=== PATIENT | female | born 1990 | race Caucasian/White ===

== ENCOUNTER 2017-02-03 03:39 | Emergency (ER) | payer MEDICAID ==
[2017-02-03] MEDS ORDERED: oxyCODONE 5 MG Tab PO ONE (04:27)
--- NOTE | 2017-02-03 04:36 | EDM.PDOC ---
ED HPI GI/ABDOMINAL - General Chief Complaint: Abdominal Pain Stated Complaint: FROM OB CHECK Time Seen by Provider: 02/03/17 04:06 Source: Reports: Patient History Limitations: Reports: No limitations - History of Present Illness INITIAL COMMENTS - FREE TEXT/NARRATIVE: History of present illness: [26-year-old was sent down from OB at 35 weeks gestation with right lateral chest wall pain. She was cleared from OB perspective there was a front clerk and then sent down as it does not appear to be in obstetrical problem. She's been having trouble with a cough lately and this pain came on over the last couple of days with coughing. Swelling localized to the right lateral lower chest and it is sharp in nature and hurts to lay on that side it hurts to cough hurts to take a deep breath cough is nonproductive and she said no fever no complications during this thus far] Review of systems: As per history of present illness and below otherwise all systems reviewed and negative. Past medical history: As per history of present illness and as reviewed below otherwise noncontributory. Surgical history: As per history of present illness and as reviewed below otherwise noncontributory. Social history: No reported history of drug or alcohol abuse. Family history: As per history of present illness and as reviewed below otherwise noncontributory. Physical exam: HEENT: Atraumatic, normocephalic, pupils reactive, negative for conjunctival pallor or scleral icterus, mucous membranes moist, throat clear, neck supple, nontender, trachea midline. Lungs: Clear to auscultation, breath sounds equal bilaterally, chest is tender and well localized to the right lateral lower rib the 11th or 12th rib Heart: S1S2, regular, negative for clicks, rubs, or JVD. Abdomen: Her abdomen is soft bowel sounds active with a fundal height of 35 cm consistent with dates she has no right upper quadrant abdominal pain or left upper quadrant abdominal pain Pelvis: Stable nontender. Genitourinary: Deferred. Rectal: Deferred. Extremities: Warm without edema Neuro: Awake, alert, oriented. Exam nonfocal. Diagnostics: [] Therapeutics: [Oxycodone 10 mg by mouth was given] Impression: [Chest wall pain I suspect fractured rib from coughing] Plan: [She's provided with oxycodone 5 mg 1 by mouth every 4 hours when necessary #30 no refills and she will follow up with her machine maintenance technician we discussed that she is at risk for pneumonia with this if it she indeed has a fractured rib] Definitive disposition and diagnosis as appropriate pending reevaluation and review of above. - Related Data Allergies/ADRs: Allergies Allergy/AdvReac Type Severity Reaction Status Date / Time hydrocodone Allergy Nausea and Verified 02/03/17 03:47 Vomiting Home Meds: Home Meds Acetaminophen [Tylenol Extra Strength] 1,000 mg PO ASDIRECTED 02/03/17 [History] Omeprazole 10 mg PO DAILY 02/03/17 [History] Pnv22/Iron Cbn&Gluc/Fa/Dss/Dha [PNV OB + DHA] 1 tab PO DAILY 02/03/17 [History] hydrOXYzine Pamoate [Vistaril] 25 mg PO Q6H 02/03/17 [History] Past Medical History HEENT History: Reports: Impaired vision Gastrointestinal History: Reports: None PERSONAL FINANCIAL ADVISOR History: Reports: , Other (see below) Other OB/BYN History: gest diabetic Endocrine/Metabolic History: Reports: Diabetes, gestational - Infectious Disease History Infectious Disease History: Reports: Chicken pox - Past Surgical History GI Surgical History: Reports: Cholecystectomy Social & Family History - Family History Family Medical History: Unobtainable - Tobacco Use Smoking Status *Q: Former Smoker Years of Tobacco use: 6 Used Tobacco, but Quit: Yes Month Tobacco Last Used: unknown Second Hand Smoke Exposure: No - Caffeine Use Caffeine Use: Reports: Tea - Alcohol Use Days Per Week of Alcohol Use: 0 - Recreational Drug Use Recreational Drug Use: No ED ROS GENERAL - Review of Systems Review Of Systems: ROS reveals no pertinent complaints other than HPI. ED EXAM, GI/ABD - Physical Exam Exam: See Below Course - Vital Signs Last Recorded V/S: Last Vital Signs Temp 36.4 C 02/03/17 03:50 Pulse 87 02/03/17 03:50 Resp 16 02/03/17 03:50 BP 111/55 L 02/03/17 03:50 Pulse Ox 99 02/03/17 03:50 - Orders/Labs/Meds Meds: Medications Discontinued Medications Generic Name Dose Route Start Last Admin Trade Name Freq PRN Reason Stop Dose Admin Oxycodone HCl 10 mg 02/03/17 04:27 Oxycodone PO 02/03/17 04:28 ONETIME ONE Departure - Departure Time of Disposition: 04:35 Disposition: Home, Self-Care 01 Condition: good Clinical Impression: Chest wall pain Forms: ED Department Discharge Additional Instructions: Please follow up with her machine maintenance technician as soon as possible so that she can follow you along with this new problem and offered her assistance and advice in helping with her pain
[2017-02-03 05:17] VITALS: BP 111/55
== END 2017-02-03 04:42 | disposition home or self-care (01) ==
LOC: JP.ED 03:39
DX: O99.89 Other specified diseases and conditions complicating pregnancy, childbirth and the puerperium (principal); R07.89 Other chest pain; Z3A.35 35 weeks gestation of pregnancy; Z79.899 Other long term (current) drug therapy; Z88.5 Allergy status to narcotic agent
CPT/HCPCS: 99284; A9270; 99283